=== PATIENT | male | born 1950 | race Caucasian/White ===

== ENCOUNTER 2018-09-09 09:20 | Day surgery (SDC) | payer MEDICARE ==
[2018-09-02 16:18] VITALS: BMI 31.3
[~2018-09-09 09:20] MED LIST: LACTATED RINGERS 1,000 ML IV SCH
[2018-09-09 10:16] VITALS: TEMP 97.4
[2018-09-09] MEDS ORDERED: PROPOFOL 10 MG/ML 20 ML VIAL IV ONE (11:11)
[2018-09-09 12:02] VITALS: RESP 18
--- NOTE | 2018-09-09 12:05 | P.PCN ---
Date of Procedure: 09/09/18 Procedure(s) Performed: Procedure: Esophagogastroduodenoscopy and biopsy. Total colonoscopy. Preoperative diagnosis: Positive cologuard test and history of esophagitis and polyps. Last EGD 2014. Last colonoscopy around 10 years ago. Postoperative diagnosis: 1. High-grade distal esophagitis. 2. No definite stricture. 3. Suspected Richardson's esophagus. 4. Sliding hiatal hernia. 5. Normal colonoscopy. Preparation and sedation: Were provided by anesthesia. Brief clinical history: The patient is a 68-year-old male who I have evaluated in the office regarding history of acid reflux disease and positive cologuard. The patient has history of chronic reflux and on his last upper endoscopy in 2014.there is history of polyps and his last colonoscopy was around 10 years ago. The patient has no alarm symptoms. Procedure: With the patient on his left lateral decubitus position and after informed consent and adequate sedation, I passed the Olympus-GIF 160 video upper endoscope through the cricopharyngeus down the esophagus. The GE junction was around 34 cm from the incisors and the tubular esophagus continued for another 3-4 cm. Proximal to the GE junction the esophagus displayed broad ulcerations and linear erosions consistent with high-grade esophagitis. There was no definite strictures or any impediment to the advancement of the endoscope. The endoscope was then advanced through a 2-3 cm hiatal hernia to the rest of the stomach. The stomach was insufflated with air and inspected in detail including the retroflex with the cardia. No obvious abnormalities were noted. Pyloric channel, duodenal bulb, post bulbar area and descending duodenum appeared within normal limits. I obtained biopsies in the inflamed segment of the esophagus then the endoscope was withdrawn and I proceeded with the colonoscopy. Perianal area did not show any fissures or fistulas. There were no masses felt on digital rectal examination. The Olympus CFH 190L video colonoscope was then inserted in the rectum in the usual fashion and advanced to the cecum. The mucosa appeared healthy. No polyps or tumors were seen or any obvious diverticular disease or bleeding. I retroflexed the endoscope in the rectum before the endoscope was withdrawn. The patient tolerated the procedure well. Plan: I summarized the findings to the patient and suggested that he starts intensive medical therapy with proton pump inhibitors in twice a day dosing and to follow antireflux diet and measures. I anticipate repeating his endoscopy after 3 or 4 months to assess the healing and to rule out Richardson's esophagus or strictures. For colonoscopy will consider repeat exam in 10 years. He will follow up with you as planned and I'll keep you updated on his progress.
[2018-09-09 12:27] VITALS: BP 146/99; PULSE 57
== END 2018-09-09 12:50 | disposition home or self-care (01) ==
LOC: ORWHC2ENDO 09:20
DX: K22.10 Ulcer of esophagus without bleeding (principal); K21.0 Gastro-esophageal reflux disease with esophagitis; K44.9 Diaphragmatic hernia without obstruction or gangrene; R19.5 Other fecal abnormalities; Z86.010 Personal history of colon polyps; M19.90 Unspecified osteoarthritis, unspecified site; G47.33 Obstructive sleep apnea (adult) (pediatric)
CPT/HCPCS: 45378; 43239; J2704; 88305

== ENCOUNTER 2020-09-01 09:58 | Day surgery (SDC) | payer MEDICARE ==
[2020-08-31 10:11] VITALS: BMI 29.7
[~2020-09-01 09:58] MED LIST changes: +LIDOCAINE 1% (10MG/ML) FOR IV START INTRADERMA PRN
[2020-09-01 10:12] VITALS: RESP 16; TEMP 97
[2020-09-01] MEDS ORDERED: LIDOCAINE 1% INJ 10MG/ML (20 ML MDV) ONE (10:37)
[2020-09-01] MEDS ORDERED: PROPOFOL 10 MG/ML 20 ML VIAL IV ONE (10:37)
--- NOTE | 2020-09-01 11:06 | P.PCN ---
Date of Procedure: 09/01/20 Description of Procedure: BRIEF HISTORY: Patient is a 70-year-old male who presents for symptoms of esophageal dysphagia. He reports one month of discomfort in the mid to distal esophagus. The sensation of something stuck in the bottom of his esophagus. The patient previously reports he did not have improvement with Protonix therapy and was given high-dose omeprazole therapy. He reports he is currently not using the medication and is taking an [id number] acid hand bootmaker. Previously he had findings of high-grade distal esophagitis on EGD performed in 08/2018.. PROCEDURE PERFORMED: Esophagogastroduodenoscopy with biopsy. PREOPERATIVE DIAGNOSIS: Esophageal dysphagia, history of esophagitis, gastroesophageal reflux disease. ESTIMATED BLOOD LOSS: Minimal. IV sedation per anesthesia. PROCEDURE: After informed consent was obtained, the patient was brought into the endoscopy unit. IV sedation was administered by Anesthesia under continuous monitoring. Initially the Olympus GIF-190 video endoscope was inserted into the mouth. Esophagus intubated without any difficulty. It was gradually advanced into the stomach and duodenum and carefully examined. The bulb and the second part of the duodenum appeared normal, with biopsies taken. The scope at this time was withdrawn to the stomach, adequately insufflated with air, and upon careful examination, mucosa of the antrum, body, cardia and the fundus appeared normal, with biopsies of the antrum and body taken. The scope was then withdrawn into the esophagus. The GE junction was located at 36 cm from the incisors, 4 cm hiatal hernia. The esophagus was significant for 6 cm of erythema and superficial ulceration consistent with LA grade D distal esophagitis with biopsies taken of the distal esophagus. The patient tolerated the procedure. IMPRESSION: 1. LA grade D distal esophagitis. 2. Moderate size hiatal hernia. RECOMMENDATIONS: The findings of this examination were discussed with the patient and his . Okay to resume diet. Okay to resume medications. Recommendation is a patient restart PPI therapy and can consider the addition of Carafate therapy on follow- up in clinic if still symptomatic. Patient asked to follow up in the clinic in 1-2 weeks for results of biopsies which consent for special staining.
[2020-09-01 11:23] VITALS: BP 113/69; PULSE 63
== END 2020-09-01 11:54 | disposition home or self-care (01) ==
LOC: ORWHC2ENDO 09:58
PROVIDERS: ATTEND Internal Medicine
DX: K29.50 Unspecified chronic gastritis without bleeding (principal); K21.00 Gastro-esophageal reflux disease with esophagitis, without bleeding; K22.10 Ulcer of esophagus without bleeding; K44.9 Diaphragmatic hernia without obstruction or gangrene; I10 Essential (primary) hypertension; G47.33 Obstructive sleep apnea (adult) (pediatric); Z99.89 Dependence on other enabling machines and devices; Z79.899 Other long term (current) drug therapy; Z98.41 Cataract extraction status, right eye; Z98.42 Cataract extraction status, left eye; Z98.890 Other specified postprocedural states
CPT/HCPCS: 88305; 88312; 43239; J2001; J2704

== ENCOUNTER 2020-12-20 08:17 | Day surgery (SDC) | payer MEDICARE ==
[2020-12-16 10:22] VITALS: BMI 31.0
[2020-12-20 08:48] VITALS: TEMP 97.4
[2020-12-20] MEDS ORDERED: LIDOCAINE 1% INJ 10MG/ML (20 ML MDV) ONE (09:25)
[2020-12-20] MEDS ORDERED: PROPOFOL 10 MG/ML 20 ML VIAL IV ONE (09:25)
[2020-12-20 09:51] VITALS: RESP 16
--- NOTE | 2020-12-20 09:55 | P.PCN ---
Date of Procedure: 12/20/20 Description of Procedure: BRIEF HISTORY: Patient is a 70-year-old male presenting for outpatient EGD for evaluation of reflux and GERD. Previously the patient had EGD performed showing LA grade D esophagitis with a hiatal hernia. He reports overall improvement in symptoms but still has some throat clearing and globus. PROCEDURE PERFORMED: Esophagogastroduodenoscopy with biopsy. PREOPERATIVE DIAGNOSIS: Reflux, GERD, history of esophagitis, globus. ESTIMATED BLOOD LOSS: Minimal. IV sedation per anesthesia. PROCEDURE: After informed consent was obtained, the patient was brought into the endoscopy unit. IV sedation was administered by Anesthesia under continuous monitoring. Initially the Olympus GIF-190 video endoscope was inserted into the mouth. Esophagus intubated without any difficulty. It was gradually advanced into the stomach and duodenum and carefully examined. The bulb and the second part of the duodenum appeared normal, with biopsies taken. The scope at this time was withdrawn to the stomach, adequately insufflated with air, and upon careful examination, mucosa of the antrum, body, cardia and the fundus appeared normal, with biopsies taken of the antrum and body. The scope was then withdrawn into the esophagus. The GE junction was located at 36 cm from the incisors was a 4 cm hiatal hernia noted. The esophagus was significant for superficial erosions in the distal esophagus consistent with LA grade C distal esophagitis with biopsies taken of the lower esophagus but otherwise appeared normal. There were no erosions or ulcerations seen and the patient tolerated the procedure well. IMPRESSION: 1. LA grade D distal esophagitis. 2. Moderate hiatal hernia. 3. Biopsies of duodenum, antrum and body and lower esophagus. RECOMMENDATIONS: The findings of this examination were discussed with the patient and his family. Okay to resume diet. Okay to resume medications. Await pathology from biopsies. Follow up in the GI clinic as scheduled. Can consider addition of famotidine at night, or change in dosing of omeprazole to twice daily.
[2020-12-20 10:07] VITALS: BP 121/77; PULSE 54
== END 2020-12-20 10:25 | disposition home or self-care (01) ==
LOC: ORWHC2ENDO 08:17
PROVIDERS: ATTEND Internal Medicine
DX: K21.00 Gastro-esophageal reflux disease with esophagitis, without bleeding (principal); K44.9 Diaphragmatic hernia without obstruction or gangrene; K22.10 Ulcer of esophagus without bleeding
CPT/HCPCS: 88305; 43239; J2001; J2704

== ENCOUNTER 2022-02-20 08:48 | Day surgery (SDC) | payer MEDICARE ==
[2022-02-19 09:22] VITALS: BMI 31.3
[~2022-02-20 08:48] MED LIST changes: -LIDOCAINE 1% (10MG/ML) FOR IV START INTRADERMA PRN
[2022-02-20 09:56] VITALS: RESP 16; TEMP 97.7
[2022-02-20] MEDS ORDERED: LIDOCAINE 1% (10MG/ML) FOR IV START INTRADERMA ONE (10:00)
[2022-02-20] MEDS ORDERED: PROPOFOL 10 MG/ML 20 ML VIAL IV ONE (10:21)
--- NOTE | 2022-02-20 10:30 | P.PCN ---
Date of Procedure: 02/20/22 Procedure(s) Performed: BRIEF HISTORY: Patient is a 71-year-old, pleasant, white male scheduled for an upper endoscopy as a part of evaluation long-standing history of GERD. Last EGD was done in December [address] Rider with severe LA grade D reflux esophagitis. Since then has been maintained on omeprazole 40 mg twice daily and symptoms are gradually improving.. PROCEDURE PERFORMED: Esophagogastroduodenoscopy with biopsy. PREOPERATIVE DIAGNOSIS: Long-standing history of GERD. IV sedation per anesthesia. PROCEDURE: After informed consent was obtained, the patient was brought into the endoscopy unit. IV sedation was administered by Anesthesia under continuous monitoring. Initially the Olympus GIF-140 video endoscope was inserted into the mouth. Esophagus intubated without any difficulty. It was gradually advanced into the stomach and duodenum and carefully examined. The bulb and the second part of the duodenum appeared normal. The scope at this time was withdrawn to the stomach, adequately insufflated with air, and upon careful examination, mucosa of the antrum, body, cardia and the fundus appeared normal. The scope was then withdrawn into the esophagus. The GE junction was located at 35 cm from the incisors. Small sliding type hiatal hernia noted. The GE junction appeared sli ghtly irregular and there was a 2 mm of Richardson's appearing mucosa just proximal to the GE junction was biopsied. The esophagus appeared normal. There were no erosions or ulcerations seen and the patient tolerated the procedure well. IMPRESSION: 1. Small sliding type hiatal hernia. 2. 2 mm of Richardson's appearing mucosa just proximal to the GE junction status post biopsies RECOMMENDATIONS: The findings of this examination were discussed with the patient as well as his family. He was advised to take omeprazole 40 mg daily and continue to follow antireflux measures. He'll be seen in office in 3 months..
[2022-02-20 10:56] VITALS: BP 128/76; PULSE 52
== END 2022-02-20 11:35 | disposition home or self-care (01) ==
LOC: ORWHC2ENDO 08:48
PROVIDERS: ATTEND Internal Medicine Gastroenterology
DX: K20.0 Eosinophilic esophagitis (principal); K44.9 Diaphragmatic hernia without obstruction or gangrene; I10 Essential (primary) hypertension; G47.33 Obstructive sleep apnea (adult) (pediatric); R13.10 Dysphagia, unspecified; Z79.899 Other long term (current) drug therapy
CPT/HCPCS: 88305; 43239; J2704

== ENCOUNTER → 2022-05-14 | Outpatient (CLI) | payer MEDICARE ==
[2022-05-14 22:39] LABS: Basophils # (A) 0.04 X 10*3/uL (0.00-0.10); Basophils % (A) 0.8 %; Eosinophils # (A) 0.23 X 10*3/uL (0.04-0.35); Eosinophils % (A) 4.4 %; HCT 44.2 % (39.6-50.0); HGB 13.3 g/dL (13.0-17.0); Immature Grans, Automated 0.2 %; Lymphocytes # (A) 1.29 X 10*3/uL (0.90-5.00); Lymphocytes % (A) 24.9 %; MCH 24.1 pg (27.0-32.0); MCHC 30.1 g/dL (32.0-37.0); MCV 80.2 fL (80.0-97.0); Mean Platelet Volume 11.4 fL (9.5-12.2); Monocytes # (A) 0.75 X 10*3/uL (0.20-1.00); Monocytes % (A) 14.5 %; NRBC Per 100 WBC 0 /100 WBCS (0.0-0.0); Neutrophils # (A) 2.86 X 10*3/uL (1.80-7.70); Neutrophils % (A) 55.2 %; Platelet Count 261 X 10*3/uL (140-440); RBC 5.51 X 10*6/uL (4.40-5.60); RDW 19.1 % (11.5-14.5); WBC 5.18 X 10*3/uL (4.50-10.00)
[2022-05-15 00:02] LABS: Erythrocyte Sedimentation Rate 29 mm/Hr (0-20)
== END | disposition home or self-care (01) ==
LOC: LABWHC1 14:29
PROVIDERS: ATTEND Orthopaedic Surgery
DX: M25.551 Pain in right hip (principal)
CPT/HCPCS: 36415; 85025; 85652; 86140